=== PATIENT | female | born 1985 | race African-American/Black ===

== ENCOUNTER 2020-08-17 13:05 | Outpatient (CLI) | payer BC ==
[~2020-08-17 13:05] MED LIST: Iopamidol 300 61% 50 ML VIAL FS ONE
[2020-08-17 13:30] LABS: BHCG - Serum Negative (NEGATIVE); Pregs Control Background? CLEAR/WHITE (CLR/WHITE); Pregs Control Bar Appear? YES (CONTROL BAR)
== END 2020-08-17 13:06 | disposition home or self-care (01) ==
LOC: RAD 13:05
DX: Z31.84 Encounter for fertility preservation procedure (principal)
CPT/HCPCS: 58340; 74740; 84703; Q9967